=== PATIENT | male | born 1960 | race Caucasian/White ===

== ENCOUNTER 2021-07-01 03:51 | Outpatient (CLI) | payer OTHER, SELFPAY ==
[2021-07-01 07:36] LABS: Abs Immature Grans 0.02 10^3/uL (0.0-0.06); Absolute Basophil Count 0.04 10^3/uL (0.0-0.2); Absolute Eosinophil Count 0.19 10^3/uL (0.0-0.7); Absolute Neutrophil Count 3.31 10^3/uL (1.2-6.7); Basophils % 0.6; Eosinophils % 2.8; HCT 44.1 % (40.0-50.0); HGB 14.1 g/dL (13.5-17.5); Immature Grans % 0.3; Lymphocytes % 38.5; MCH 28.5 pg (27.0-33.0); MCV 89.1 fL (80-95); MPV 8.9 fL (8.0-11.0); Monocytes % 8.9; Neutrophils % 48.9; Nucleated RBC 0 %; Platelet Count 323 10^3/uL (130-400); RBC 4.95 10^6/uL (4.36-5.78); RDW 14.5 % (11.8-14.1); RDW-SD 47.1 fL; WBC 6.76 10^3/uL (4.4-10.8)
[2021-07-01 08:18] LABS: ALT 27 U/L (16-63); AST 19 U/L (15-37); Albumin 4.2 g/dL (3.4-5.0); Alkaline Phosphatase 64 U/L (46-116); Anion Gap 9.9 mmol/L (3-11); BUN 19 mg/dL (7-18); Bilirubin, Total 0.4 mg/dL (0.2-1.0); CO2 28.1 mmol/L (21.0-32.0); Calcium 8.7 mg/dL (8.5-10.1); Calculated LDL 132 mg/dL (<100); Chloride 103 mmol/L (98-107); Cholesterol 198 mg/dL (<200); Glucose 87 mg/dL (74-106); HDL Cholesterol 57 mg/dL (40-60); Potassium 4.5 mmol/L (3.5-5.1); Sodium 141 mmol/L (136-145); TSH (W/Ref FT4) 1.45 uIU/mL (0.36-3.74); Total Protein 7.1 g/dL (6.4-8.2); Triglyceride 46 mg/dL (<150)
[2021-07-01 09:59] LABS: Lipase 81 U/L (73-393)
[2021-07-01 18:24] LABS: PSA, Screening 1.4 ng/mL (0.0-4.5)
[2021-07-02 09:13] LABS: Hepatitis C Ab w Rflx HCV PCR Negative (Negative)
[2021-07-02 09:21] LABS: HIV-1/2 Ag & Ab Screen Negative (Negative)
[2021-07-05 12:55] LABS: IgA 207 mg/dL (85-499); Interpretation (See Note); Tissue Transglutaminase IgA <1.2 U/mL (<4.0)
== END 2021-07-01 03:52 | disposition home or self-care (01) ==
LOC: LBO 03:51
PROVIDERS: PCP Family Medicine; Visit Provider Family Medicine
DX: R10.9 Unspecified abdominal pain (principal); R19.7 Diarrhea, unspecified; Z11.59 Encounter for screening for other viral diseases; Z12.5 Encounter for screening for malignant neoplasm of prostate; Z13.6 Encounter for screening for cardiovascular disorders; I10 Essential (primary) hypertension
CPT/HCPCS: 36415; 80053; 80061; 82784; 83516; 83690; 84153; 86803; 87389; 84443; 85025

== ENCOUNTER 2021-12-30 10:05 | Day surgery (SDC) | payer OTHER, SELFPAY ==
--- NOTE | 2021-12-30 05:41 | W.PM.DSUDISC ---
Discharge Plan Disposition Patient Disposition: HOME Condition: Good Discharge Details Reason For Visit: screening colonoscopy Attending Provider: Francis Hills Primary Care Provider: Margaret Pickett Home Meds and New Rx's Prescriptions: Continued multivitamin Tablet 1 tab PO DAILY ibuprofen 200 mg capsule 600 mg PO Q6H PRN Discontinued bisacodyl [Dulcolax (bisacodyl)] 5 mg tablet,delayed release (DR/EC) 5 mg PO ONCE Qty: 4 0RF Rx Instructions: Take according to provider's instructions for colonoscopy prep. polyethylene glycol 3350 17 gram/dose powder 17 g PO ONCE Qty: 238 0RF Rx Instructions: To be taken as directed by prescriber's office for colonoscopy prep. Discharge Instructions Instructions: Colonoscopy (DC), Diverticulosis (DC) Additional Instructions: 1. If tolerated, consume a soft, low fiber diet for 1-2 days. [address] Do not drive, drink alcohol, operate machinery, make critical decisions, or do activities that require coordination or balance for 24 hours. 3. Because air was put into your colon during the procedure, expelling air from your rectum (passing gas or farting) is normal. 4. You may not have a bowel movement for 1-3 days because of the colonoscopy prep. This is normal. 5. Go directly to the emergency room if you notice any of the following: Develop chills (warm to touch), or if you have a thermometer and your temperature is above 101 Difficulty breathing or difficultly swallowing Persistent vomiting Severe abdominal pain, other than gas cramps Severe chest pain Black, tarry stools Any bleeding ? exceeding one tablespoon 6. Call your physician if the site where your intravenous was started becomes red, swollen, painful, and warm to touch. 7. Your physician has reviewed your pre-procedure medications. Please continue to take those medications as previously ordered. You will be given specific information/education regarding any changes to your medications before leaving. Activity:: Activity as Tolerated Diet:: As Tolerated Discharge Orders Discharge Orders: Discharge Order (Routine); Ordered 12/30/21 Ordered By: Francis Hills Discharge Data Discharge Comment: no polyps. follow up for next one 10 years DS: Diagnosis Discharge Diagnosis (1) Diverticulosis: Status: Acute Asessment and Plan: Follow up in 10 years for next screening colonoscopy
--- NOTE | 2021-12-30 05:44 | COLE_ITS ---
Colonoscopy Report Date of procedure: 12/30/21 Pre-op diagnosis general: sceening colonoscopy for routine health maintenance Post-op diagnosis procedure note: other (diverticulosis) Procedure: screening colonoscopy Surgeon: Francis iHlls Anesthesia Type: General:No Airway Estimated blood loss (mL): 0 Pathology: none sent Complications: None Disposition: same day Indications: screening colonoscopy Prep: Miralax/Dulcolax Procedure Start Time: 12:10 Procedure End Time: 12:38 Retraction Time: 19 Findings: mild diverticulosis Procedure Description: After the induction of monitored anesthetic care, and with the patient in left lateral decubitus position, I began by performing an external anorectal exam.? Perineum and skin were normal, as was the anal verge.? There were some fibrous skin tags.? Next, I performed a digital rectal exam.? I did not appreciate any abnormal findings.? Next, I advanced a colonoscope into the rectal vault.? I performed retroflexion.? I did see signs some internal hemorrhoids.? Using insufflation, I then advanced the colonoscope beyond the rectal folds and into the sigmoid colon before advancing towards the cecum.? The quality of the prep was adequate.? The scope was noted to be in the cecum by identification of the ileocecal valve and appendiceal orifice.? I then began withdrawing the colonoscope using repeated irrigation as necessary for full evaluation of the colonic mucosa. There was mild sigmoid diverticulosis. Once the scope was wi thdrawn to the level of the rectum, great care was taken to examine portions of the rectal folds.? Finally, the scope was withdrawn and the patient was brought to the same-day surgery recovery unit as the anesthetic wore off. ?The findings and instructions were shared with the patient prior to discharge.
--- NOTE | 2021-12-30 06:58 | W.ANESPRE ---
General Info Date of Service Date Performed: 12/30/21 Height: 5 ft 5 in Weight: 73.539 kg Body Mass Index (BMI): 26.9 Surgical Procedure: Operation Date: 12/30/21 11:35 Proposed Procedure Side Surgeon p Colonoscopy Francis Hills MD Meds Allergies and Home Medications Allergies Allergy/AdvReac Type Severity Reaction Status Date / Time No Known Allergies Allergy Unverified 12/29/21 10:30 Home Medication Medication Instructions Recorded ibuprofen 200 mg capsule 600 mg PO Q6H PRN 12/22/21 multivitamin 1 tab PO DAILY 12/22/21 Current Visit Medications: Current Medications Generic Name Dose Route Start Last Admin Trade Name Freq PRN Reason Stop Dose Admin Ringer's Solution 1,000 mls @ 80 mls/hr 12/30/21 06:00 IV 01/28/22 23:59 INFUSION SATINDER IV Miscellaneous Supplies 1 each 12/30/21 06:00 Iv Access IV 01/28/22 23:59 DIRECTED SATINDER Sodium Chloride 0 ml 12/30/21 06:00 Normal Saline Flush 10 Ml Syr IV 01/28/22 23:59 PRN PRN Sodium Chloride 0 ml 12/30/21 06:00 Normal Saline 10 Ml Vial IJ 01/28/22 23:59 DIRECTED PRN Sterile Water 0 ml 12/30/21 06:00 Water,Injection,Sterile 10 Ml Vial IJ 01/28/22 23:59 DIRECTED PRN PFSH Active Problems Active Problems: Problem Status Onset Code Screening for colon cancer Z12.11 Personal history of nicotine dependence Z87.891 Bigeminy I49.8 Irritable bowel syndrome K58.9 Tobacco Smoking/Tobacco Use Status: Former Tobacco Use Alcohol Alcohol Intake: current Alcohol intake frequency: holidays/special occasions only Alcohol type: beer Substance Use Substance use: Never Substance use type: does not use Vital Signs and Lab Results Lab Results Blood Type / Crossmatch: No Data to Display Complete Blood Count: No Data to Display Complete Metabolic Panel: No Data to Display Liver Function Panel: No Data to Display Coagulation Panel: No Data to Display Cardiac Panel: No Data to Display Arterial Blood Gas: No Data to Display Venous Blood Gas: No Data to Display Pancreas Panel: No Data to Display Thyroid Panel: No Data to Display Infectious Disease: No Data to Display Blood Cultures: No Data to Display Toxicology Panel: No Data to Display Anesthesia Assessment and Plan Anesthesia History Personal History: No History of Anesthesia Complications Family History: No Family History of Anesthesia Complications Exercise Tolerance Exercise Tolerance: Metabolic Equivalents>4 Pertinent Negatives Pertinent Negatives: No Symptoms of GERD Cardiac & Pulmonary Exam Cardiac Exam: Normal S1/S2 Heart Sounds Pulmonary Exam: Clear Bilateral Breath Sounds Implantable Cardiac Device Does patient have a Pacemaker or an ICD?: No Airway Exam Known Difficult Airway: No Mallampati Class: 2 Mouth Opening: Normal (> 3cm) Thyromental Distance: Greater than 3 cm Neck Range of Motion: Full ROM Neck Circumference: Normal Teeth Condition: Normal Dentition ASA Classification ASA Score: ASA 2 Emergency Case?: No NPO Status NPO Status: NPO Clears >2 hours, Solids >8 hours Anesthesia Plan Resuscitation Status: Full Code Anesthesia Technique: General Anesthesia Airway Planned: Natural Airway Monitors Used: Standard Monitors
[2021-12-30 10:20] VITALS: BP 121/77; PULSE 55; RESP 18; TEMP 37; O2SAT 99
[2021-12-30] MEDS: Lactated Ringers 1,000 ML 80 ML IV (10:44)
[2021-12-30 12:49] VITALS: BP 121/77; PULSE 53; RESP 16; TEMP 36.6; O2SAT 97
[2021-12-30 13:16] VITALS: BP 156/99; PULSE 51; RESP 18; TEMP 36.7; O2SAT 100
[2021-12-30 14:04] VITALS: BMI 26.9
--- NOTE | 2021-12-30 14:04 | W.ANESPOSTOP ---
Postoperative Evaluation Date, Time and Location Date Performed: 12/30/21 Time Performed: 14:04 Patient Location: Day Surgery Unit Vital Signs Most Recent Imported Vital Signs: Most Recent Vital Signs Temp Pulse Resp BP Pulse Ox 36.7 C 51 L 18 156/99 H 100 12/30/21 13:16 12/30/21 13:16 12/30/21 13:16 12/30/21 13:16 12/30/21 13:16 Pain Score Most Recent Pain Score: Most Recent Pain Score Pain Level 0 12/30/21 13:16 Assessment Mental Status: Awake (Alert & Oriented to Patient Baseline) Airway and Respiratory Function: Patent airway with normal (patient baseline) respiratory exam Cardiovascular Function: Hemodynamically Stable Hydration Status: Adequately Hydrated Nausea & Vomiting: No Nausea or Vomiting Pain: Pt. Denies Any Pain Peripheral Nerve Block: Patient did not receive a nerve block
== END 2021-12-30 13:43 | disposition home or self-care (01) ==
PROVIDERS: PCP Family Medicine; Visit Provider Surgery
PROC: 0DJD8ZZ Inspection of Lower Intestinal Tract, Via Natural or Artificial Opening Endoscopic (ICD-10-PCS; CPT 45378; principal; 2021-12-30 11:30)
DX: Z12.11 Encounter for screening for malignant neoplasm of colon (principal); K57.30 Diverticulosis of large intestine without perforation or abscess without bleeding; Z87.891 Personal history of nicotine dependence
CPT/HCPCS: 45378

== ENCOUNTER 2023-11-27 02:45 | Outpatient (CLI) | payer MEDICARE, SELFPAY ==
--- NOTE | 2023-11-27 06:00 | DI.CTLCSR_ITS ---
Exam(s) CT CHEST LUNG CANCER SCREEN EXAM: CT CHEST LUNG CANCER SCREEN CLINICAL HISTORY: Screening for lung cancer,former smoker, z87.891 TECHNIQUE: Imaging Protocol: Axial computed tomography images with coronal and sagittal reformatted images were created and reviewed COMPARISON: No exams were available for comparison FINDINGS: Tracheobronchial tree: Patent where visualized. No bronchiectasis. Pulmonary parenchyma: No consolidation or dominant measurable mass. There is a small area of scarring or infiltrate in the right upper lobe posteriorly. There is a calcified granuloma in the left lower lobe. Lung Nodules: There is a 4 mm nodule in the right upper lobe (series 2, image 96). Mediastinum and Pratima: No dominant adenopathy or fluid collection. The esophagus is unremarkable. Thyroid gland: Unremarkable. Lymph nodes: Unremarkable. Pleura: No effusion or pneumothorax. Heart: The heart is not dilated. Coronary artery calcifications are present. No pericardial effusion . Aorta: Thoracic aorta non-dilated. Upper abdomen: There is a question of a 1 cm exophytic nodule along the anterior aspect of the upper pole of the left kidney. It is isoechoic dense. It does not meet the criteria for a simple cyst. (Series 4, image 60). Soft Tissues: Unremarkable. Bones: Within normal limits for the patient's age. IMPRESSION: 1. 4 mm right upper lobe pulmonary nodule. 2. Exophytic 1 cm nodule in the anterior aspect of the left kidney. CT scan or MRI of the abdomen is recommended for further evaluation. Lung RADS Cat 3S - Probably Benign: Probably benign finding(s) - short term follow-up suggested; incl ude nodules with a low likelihood of becoming a clinically active cancer. Other: Clinically Significa nt or Potentially Clinically Significant Findings (non lung cancer) Lung-RADS 1.0 CATEGORIES: Category 0 - Prior chest CT exam(s) being located for comparison. Category 1 - Annual screening in 12 months. No nodules or definitely benign nodules. Category 2 - Annual screening in 12 months. Benign appearance. Nodules with low likelihood of becomin g active cancer. Category 3 - 6-month follow-up. Probably benign. Short-term follow-up suggested. Nodules with low lik elihood of becoming active cancer. Category 4A - 3-month follow-up and CT/PET if >8 mm in size. Suspicious finding. Findings which requi re additional testing. Category 4B - Findings which require additional testing and tissue sampling. Suspicious finding. Category 4X - Category 3 or 4 nodules with additional features or imaging findings that increases the suspicion of malignancy. Modifier S- Potentially clinically significant finding. (Non lung cancer) Unexpected findings RADIATION DOSE DELIVERED: Total DLP Total DLP DATA REPOSITORY: All CT scans at this facility are submitted to the National Radiology Data Registry (NRDR) Dose Index Registry (DIR) with the [employer] (ACR). RADIATION OPTIMIZATION: All CT scans at this facility use at least one of these dose optimization te chniques: automated exposure control; mA and/or kV adjustment per patient size (includes targeted exa ms where dose is matched to clinical indication); or iterative reconstruction.
--- NOTE | 2023-11-27 06:00 | DI.US_ITS ---
Exam(s) US AAA SCREENING EXAM: US AAA SCREENING CLINICAL HISTORY: screening for aaa,personal h/o nicotine dependence, z87.891 COMPARISON: No exams were available for comparison FINDINGS: Abdominal Aorta: Proximal: 2.5 x 2.7 cm Mid: 2.1 x 2.2 cm Distal: 1.8 x 2.2 cm Iliac's: Right: 1.5 x 1.6 cm Left: 1.3 x 1.6 cm IMPRESSION: No evidence of abdominal aortic aneurysm. DATA REPOSITORY:
== END 2023-11-27 03:05 ==
LOC: DI 02:45
PROVIDERS: PCP Family Medicine; Visit Provider Family Medicine
DX: Z87.891 Personal history of nicotine dependence (principal); R91.1 Solitary pulmonary nodule; R93.422 Abnormal radiologic findings on diagnostic imaging of left kidney
CPT/HCPCS: 71271; 76706

== ENCOUNTER 2023-12-01 00:18 | Outpatient (CLI) | payer MEDICARE, SELFPAY ==
--- OUTSIDE RECORDS SUMMARY | 2023-12-01 00:23 | XMS_ITS | Encounter Summary ---
Author Organization [facility] Address [address] [place] [address] Care Team Providers Care Data Capture Clerk Name Role Phone Unavailable Primary Care Provider Unavailabl e Encounter Details Date Type Department Care Team (Late st Contact Info) Description 07/01/2021 Lab Requisition [facility] Pathology & Laboratory Medicine - [facility] [address] [place] [address] Outr Resulting Lab, Provider Social History Tobacco Use Types Packs/Day Years Used Date Smoking Tobacco: Never Assessed Sex and Gender Information Value Date Recorded Sex Assigned at Not on file Gender Identity Not on file Sexual Orientation Not on file documented as of this encounter Plan of Treatment Not on file documented as of this encounter Procedures Procedure Name Priority Date/Time Associated Diagnosis Comments CELIAC DISEASE PANEL Routine 07/01/2021 7:20 EDT HEPATITIS C AB W REFLEX TO HCV RNA BY PCR Routine 07/01/2021 7:20 EDT PSA TOTAL, DIAGNOSTIC Routine 07/01/2021 7:20 EDT documented in this encounter Results * PSA TOTAL, DIAGNOSTIC (07/01/2021 7:20 EDT) PSA 1.4 0.0 - 4.5 ng/mL 07/01/2021 18:19 EDT [facility] Blood VENOUS BLOOD / Unknown 07/01/2021 7:20 EDT 07/01/2021 17:17 EDT Narrative [facility] - 07/01/2021 18:19 EDT NOTE: Serum PSA concentration should not be interpreted as absolute evidence for the presence or absence of malignant disease. Assayed on Siemens ADVIA Zipdialaur XPT using chemiluminescent technology.??Values obtained by using different assay methods cannot be used interchangeably. Provider Outr Resulting Lab CHEMISTRY & BLOOD GAS ORDERABLES Performing Organization Address City/[facility]/ZIP Co de Phone Number [facility] [address] [place] [address] * HEPATITIS C AB W REFLEX TO HCV RNA BY PCR (07/01/2021 7:20 EDT) Hep C Antibody Negative Negative 07/02/2021 9:08 EDT [facility] Blood VENOUS BLOOD / Unknown 07/01/2021 7:20 EDT 07/01/2021 17:17 EDT Provider Outr Resulting Lab CHEMISTRY & BLOOD GAS ORDERABLES Performing Organization Address [facility] Co de Phone Number [facility] [address] [place] [address] * CELIAC DISEASE PANEL (07/01/2021 7:20 EDT) Tissue Transglutaminase Antibody IGA <1.2 <4.0 U/mL 07/05/2021 12:50 EDT [facility] Comment: A negative result may be due to IgA deficiency and does not rule out celiac disease. ? Negative: ??<4.0 U/mL ? Weak Positive: ??4.0 - 10.0 U/mL ? Positive: ??>10.0 U/mL Results were obtained with the PiPsportsA Lite R h-tTG IgA BERNARD assay on the HaztucestaX. IgA 207 85 - 499 mg/dL 07/05/2021 12:50 EDT [facility] Celiac Disease Interpretation Negative Serology. Celiac disease unlikely. Approximately 10% of patients with celiac disease are seronegative. Patients who are already adhering to a gluten-free diet may also be seronegative. If celiac disease is highly clinically suspected, referral to gastroenterology for additional evaluation is recommended. 07/05/2021 12:50 EDT [facility] Blood VENOUS BLOOD / Unknown 07/01/2021 7:20 EDT 07/01/2021 17:17 EDT Provider Outr Resulting Lab IMMUNOLOGY A ND SEROLOGY ORDERABLES [facility] [address] [place] [address] documented in this encounter Visit Diagnoses Not on filedocumented in this encounter
--- OUTSIDE RECORDS SUMMARY | 2023-12-01 00:23 | XMS_ITS | Referral Summary ---
Author Organization [facility] Address [address] [place] [id number] Care Team Providers Care Senior Network Architect Name Role Phone Unavailable Primary Care Provider Unavailabl e Social History Tobacco Use Types Packs/Day Years Used Date Smoking Tobacco: Never Assessed Sex and Gender Information Value Date Recorded Sex Assigned at Not on file Gender Identity Not on file Sexual Orientation Not on file Plan of Treatment Not on file Procedures Procedure Name Priority Date/Time Associated Diagnosis Comments HEPATITIS C AB W REFLEX TO HCV RNA BY PCR Routine 07/01/2021 7:20 EDT from Last 3 Months or Most Recently Relevant to Health Maintenance Results * HEPATITIS C AB W REFLEX TO HCV RNA BY PCR (07/01/2021 7:20 EDT) Hep C Antibody Negative Negative 07/02/2021 9:08 EDT [facility] Blood VENOUS BLOOD / Unknown 07/01/2021 7:20 EDT 07/01/2021 17:17 EDT Provider Outr Resulting Lab CHEMISTRY & BLOOD GAS ORDERABLES [facility] [address] [place] [address] from Last 3 Months or Most Recently Relevant to Health Maintenance
--- OUTSIDE RECORDS SUMMARY | 2023-12-01 00:23 | XMS_ITS | Encounter Summary ---
[facility] [place] [address] Care Team Providers Care Tree Deadener Name Role Phone Margaret Pickett MD Primary Care Provider [phone] Reason for Visit * Reason Onset Date Comments Reminder Appointment 07/21/2021 Encounter Details Date Type Department Care Team (Late st Contact Info) Description 07/21/2021 [place] [phone] Fanny Putnam CCMA Reminder Appointment Social History Tobacco Use Types Packs/Day Years Used Date Smoking Tobacco: Never Assessed Sex and Gender Information Value Date Recorded Sex Assigned at Not on file Gender Identity Not on file Sexual Orientation Not on file documented as of this encounter Miscellaneous Notes * Telephone Encounter - Fanny Putnam CCMA - 07/21/2021 9:18 AM EDT Called patient to review medications and allergies for their upcoming gastroenterology Type of Appointment: Telehealth appointment. Reach Patient during MA Check: Yes Notes for the provider: Notes for the nurse: documented in this encounter Plan of Treatment Not on file documented as of this encounter Visit Diagnoses Not on filedocumented in this encounter Care Teams Tree Deadener Relationship Specialty Start Date End Date Margaret Pickett MD [address] [place] [id number] PCP - General Family Medicine 06/30/21 documented as of this encounter
--- OUTSIDE RECORDS SUMMARY | 2023-12-01 00:23 | XMS_ITS | Encounter Summary ---
[place] [address] Care Team Providers Care Precast Concrete Products Installer Name Role Phone Margaret Pickett MD Primary Care Provider [phone] Reason for Referral * Consultation (Routine) - Closed Specialty Diagnoses / Procedures Referred By Contac t Referred To Contact Gastroenterology Diagnoses Diarrhea, unspecified type motility- Diarrhea Denver Hobbs MD [address] [place] [address] [facility] [address] [place] [phone] Referral ID Status Reason Start Date Expiration Date V isits Requested Visits Authorized [id number] Closed Consult, Test & Treat 06/30/2021 06/30/2022 6 6 Encounter Details Date Type Department Care Team (Latest Contact Info) Description 06/30/2021 Transcribe Orders eDH Incoming Referrals [phone] Denver Hobbs MD [address] [place], [place] [address] Diarrhea, unspecified type Social History Tobacco Use Types Packs/Day Years Used Date Smoking Tobacco: Never Assessed Sex and Gender Information Value Date Recorded Sex Assigned at Not on file Gender Identity Not on file Sexual Orientation Not on file documented as of this encounter Plan of Treatment Scheduled Referrals Name Type Priority Associated Diagnoses Order Schedule Referral to Gastroenterology Outpatient Referral Routine Diarrhea, Unspecified Type Ordered: 06/30/2021 documented as of this encounter Visit Diagnoses Diagnosis Diarrhea, unspecified type documented in this encounter Care Teams Precast Concrete Products Installer Relationship Specialty Start Date End Date Margaret Pickett MD [address] [place] [id number] PCP - General Family Medicine 06/30/21 documented as of this encounter
--- OUTSIDE RECORDS SUMMARY | 2023-12-01 00:23 | XMS_ITS | Encounter Summary ---
Author Organization [facility] Address [address] [place] [id number] Care Team Providers Care Bread And Pastry Baker Name Role Phone Unavailable Primary Care Provider Unavailabl e Encounter Details Date Type Department Care Team (Late st Contact Info) Description 07/01/2021 Lab Requisition [facility] Pathology & Laboratory Medicine - [facility] [address] [place] [address] Outr Resulting Lab, Provider Social History Tobacco [...] Procedure Name Priority Date/Time Associated Diagnosis Comments HIV 1/2 ANTIGEN AND ANTIBODY, 4TH GENERATION Routine 07/01/2021 7:20 EDT documented in this encounter Results * HIV 1/2 ANTIGEN AND ANTIBODY, 4TH GENERATION (07/01/2021 7:20 EDT) HIV 1 and 2 Antibody/p24 Antigen, 4th Generation Negative Negative 07/02/2021 9:17 EDT [facility] Comment:If acute HIV-1 infec tion is suspected in a high risk patient, submit plasma specimen for HIV-1 RNA quantitation test. Blood VENOUS BLOOD / Unknown 07/01/2021 7:20 EDT 07/01/2021 17:17 EDT Narrative [facility] - 07/02/2021 9:17 EDT Fourth Generation assay performed on the Siemens Centaur XPT. Provider Outr Resulting Lab IMMUNOLOGY A ND SEROLOGY ORDERABLES [facility] [address] [place] [address] documented in this encounter Visit Diagnoses Not on filedocumented in this encounter
--- OUTSIDE RECORDS SUMMARY | 2023-12-01 00:23 | XMS_ITS | Clinical Summary ---
Author Organization [facility] Address [facility] [place] [address] Care Team Providers Care 3Rd Grade Teacher Name Role Phone Margaret Pickett MD Primary Care Provider Allergies No known active allergies Medications Medication Sig Dispensed Refills Start Date End Date Status cholecalciferol, Vitamin D3, (cholecalciferol, Vitamin D3,) 50 mcg (2,000 unit) Capsule Take by mouth. Active Active Problems No known active problems Immunizations Name Administration Dates Next Due Covid-19 (Pfizer), Khanna Cap Monovalent 30mcg (12yr+) 03/08/2021 Moderna Covid-19 Monovalent 12Yr+ (Returned Materials Inspector 100mcg) 07/20/2021,08/11/2020,07/14/2020 Social History Tobacco Use Types Packs/Day Years Used Date Smoking Tobacco: Never Assessed Sex and Gender Information Value Date Recorded Sex Assigned at Not on file Gender Identity Not on file Sexual Orientation Not on file Plan of Treatment Health Maintenance Due Date Last Done Comments CT Colonography 1958 Colonoscopy 1958 Colorectal Cancer Screening 1958 FIT DNA 1958 FIT 1958 Sigmoidoscopy (10 year) with FIT yearly 1958 Sigmoidoscopy 1958 HIV screen 1976 Hepatitis C Screening 1976 Lipid Screening 1976 Tdap adult 1977 Tetanus vaccine 1977 Zoster vaccine (1 of 2) 2008 Advance Directive 2013 Covid-19 Vaccine (5 - 2022-2 4 season) 2022 07/20/2021, 03/08/2021, 08/11/2020, Additional history exists Pneumoccocal Vaccine: 65+ (1 of 1 - PCV) 2023 Influenza (Flu) vaccine (1 o f 1 - Influenza standard series) 12/17/2023 Care Teams 3Rd Grade Teacher Relationship Specialty Start Date End Date Margaret Pickett MD [address] [place] [address] PCP - General Family Medicine 06/30/21
--- OUTSIDE RECORDS SUMMARY | 2023-12-01 00:23 | XMS_ITS | Encounter Summary ---
Author Organization On License Of [facility] [place] [address] Care Team Providers Care Door Operator Name Role Phone Margaret Pickett MD Primary Care Provider [phone] Encounter Details Date Type Department Care Team (Late st Contact Info) Description 11/03/2005 Orders Only Dermatology at [place] [address] [facility] [place] [address] Leonard Lawton MD [address] [facility] [place] [address] Social History Tobacco Use Types Packs/Day Years Used Date Smoking Tobacco: Never Assessed Sex and Gender Information Value Date Recorded Sex Assigned at Not on file Gender Identity Not on file Sexual Orientation Not on file documented as of this encounter Plan of Treatment Not on file documented as of this encounter Procedures Procedure Name Priority Date/Time Associated Diagnosis Comments SURGICAL PATHOLOGY REPORT Routine 11/03/2005 6:01 PM EDT documented in this encounter Results * Surgical Pathology Report (11/03/2005 6:01 PM EDT) Surgical Pathology Report [id number] ? Location: The signing pathologist has (i) examined the relevant preparation(s) for the specimen(s) and (ii) rendered or confirmed the diagnosis(es). . ?Pathology Surgical Pathology Final Report Clinical Information Specimen Submitted: A - Lt hand: ??punch 4 mm. Clinical History: 3 month H/O pruritic dermatitis. Clinical Diagnosis: Allergic contact dermatitis. Gross Description Labeled/Fixative: ? L, hand, formalin. Qty/Size/Weight: ?Single punch, 0.4 cm, there is a smooth, driver-brown ?skin surface. Sections/Processing : ??Bisected. ??(T1) ??crh/PPS Microscopic Description Slides reviewed, microscopic description not recorded. Diagnosis Skin, left hand, 4.0-mm punch biopsy: ?? Focal spongiosis with acanthosis, and a superficial perivascular mixed inflammatory cell infiltrate including lymphocytes and scattered eosinophils (see Comment). CR-0 11/06/05 AJE 11/07/05 Verified by: ? Liliane Peters MD ?Dermatopathologis t ?(Electronic Signature) The attending pathologist whose signature appears on this report has reviewed all diagnostic slides and has edited the gross and/or microscopic portion of the report in rendering the final pathologic diagnosis. Comment Multiple levels examined. ??There is very focal superfiical epidermal necrosis at the edge of a follicular ostium; this focus is absent in deeper levels. ??The significance of this very focal necrosis is unclear. It could be seondary to excoriation. The findings are consistent with the clincial suspicion of hypersensitivity reaction. BRENNAN ESLF 11/03/2005 6:01 PM EDT Leonard Lawton MD PATHOLOGY/CYTOLOGY O CHEVYERACHASE BRENNAN SELF documented in this encounter Visit Diagnoses Not on filedocumented in this encounter Care Teams Door Operator Relationship Specialty Start Date End Date Margaret Pickett MD [address] [place] [address] [place] [address] PCP - General Family Medicine 06/30/21 documented as of this encounter
--- OUTSIDE RECORDS SUMMARY | 2023-12-01 00:23 | XMS_ITS | Clinical Summary ---
Author Organization [facility] Address [address] [place] [id number] Care Team Providers Care Business Intelligence Consultant Name Role Phone Unavailable Primary Care Provider Unavailabl e Social History Tobacco Use Types Packs/Day Years Used Date Smoking Tobacco: Never Assessed Sex and Gender Information Value Date Recorded Sex Assigned at Not on file Gender Identity Not on file Sexual Orientation Not on file Plan of Treatment Health Maintenance Due Date Last Done Comments RSV Immunization ( o r 60+ Years) (1 - 1-dose 60+ series) 2018 COVID-19 Vaccine ( season) 2022 Fall Risk Screening 2023 Hepatitis C Screen Completed 07/01/2021 Procedures Procedure Name Priority Date/Time Associated Diagnosis Comments HEPATITIS C AB W REFLEX TO HCV RNA BY PCR Routine 07/01/2021 7:20 EDT from Last 3 Months or Most Recently Relevant to Health Maintenance Results * HEPATITIS C AB W REFLEX TO HCV RNA BY PCR (07/01/2021 7:20 EDT) Hep C Antibody Negative Negative 07/02/2021 9:08 EDT [facility] Blood VENOUS BLOOD / Unknown 07/01/2021 7:20 EDT 07/01/2021 17:17 EDT Provider Outr Resulting Lab CHEMISTRY & BLOOD GAS ORDERABLES [facility] [address] [place] [address] from Last 3 Months or Most Recently Relevant to Health Maintenance
--- OUTSIDE RECORDS SUMMARY | 2023-12-01 00:23 | XMS_ITS | Encounter Summary ---
Author Organization [place] [address] Care Team Providers Care Swedish Masseuse Name Role Phone Margaret Pickett MD Primary Care Provider [phone] Reason for Visit * Consultation (Routine) - Closed Specialty Diagnoses / Procedures Referred By Contmaryan t Referred To Contact Gastroenterology Diagnoses Diarrhea, unspecified type motility- Diarrhea Denver Hobbs MD [address] [place] [address] [facility] [address] [address] Referral ID Status Reason Start Date Expiration Date V isits Requested Visits Authorized [id number] Closed Consult, Test & Treat 06/30/2021 06/30/2022 6 6 Encounter Details Date Type Department Care Team (Latest Contact Info) Description 07/21/2021 11:00 AM EDT TH Visit (TeleHealth) [place] [address] Dominga Lacey, AWS SOLUTION ARCHITECT [address] [facility] [place], [place] [id number] Diarrhea, unspecified type; Irritable bowel syndrome with diarrhea; Bloating Social History Tobacco Use Types Packs/Day Years Used Date Smoking Tobacco: Never Assessed Sex and Gender Information Value Date Recorded Sex Assigned at Not on file Gender Identity Not on file Sexual Orientation Not on file documented as of this encounter Progress Notes * Dominga Lacey APRN - 07/21/2021 11:00 AM EDT [facility] Chief Complaint: Sherif Thrasher is a 61 y.o. patient referred for consultation by Dr. Anjel pathak History of Present Illness: 61 y.o. male without a significant medical history Smoked for 40 years. Once he stopped smoking, he started having gastrointestinal issues. This was approximately 18-24 months ago. Endorses one formed complete bowel movement in the morning. Started having bloating and urgent bowel movements. Loose bowel movements up to 8-10 times per day. Denies straining and difficulty emptying. FODMAP diet since 06/22/21. Dramatic improvement in terms of symptoms. Bloating and diarrhea have improved since starting FODMAP. Has started losing weight with the FODMAP. Is planning on following thereintroduction once he has reached a goal weight loss. Denies dysphagia, odynophagia, and globus. Denies reflux and regurgitation. Good appetite. Denies early satiety. Denies nausea and vomiting. Denies chronic NSAID use. PVCs occasionally Review of systems: 14-point review of systems reviewed and negative except as above. Medications: Outpatient Medications Prior to Visit Medication Sig Dispense Refill ??? cholecalciferol, Vitamin D3, (cholecalciferol, Vitamin D3,) 50 mcg (2,000 unit) Capsule Take bygauth. ??? predniSONE (DELTASONE) 10 mg tablet 10MG = 1 Tablet(s), PO, Once daily No facility-administered medications prior to visit. Allergies: has No Known Allergies. Past Medical History: has no past medical history on file. Past Surgical History: has no past surgical history on file. Family History: Father- stomach issues denies family history of colon cancer, IBD, or celiac disease in mother father or other family members Social History: Quit smoking. Denies cannabis use. Denies eTOH use. Physical exam: No Physical Examination performed during this telemedicine visit Questionnaire: No flowsheet data found. Laboratory studies, imaging, and procedures (in summary of my review of prior records): Assessment/Plan: Mr. Thrasher is a 61 y.o. patient with an 18-24 month history of bloating, abdominal pain, and urgent non-bloody loose stools up to 8-10 times per day with fecal seepage. He correlates the onset ofsymptoms with quitting smoking, although this may be coincidental. He was evaluated locally on 06/22/2021 and subsequently started the FODMAP diet. Since that time, he endorses bloating and diarrhea have improved significantly. He has started losing weight as a consequence, although admits he is approximately 40 pounds over his baseline weight. We discussed how the FODMAP diet is a short-term solution and how reintroduction is to the elimination.. We discussed how there is concern for calcium deficiency with the FODMAP diet, although he endorses using [place] and oat milk which are fortified with calcium. He is due for colorectal cancer screening, as he has never had a colonoscopy. We discussed how I am happy to arrange for colonoscopy, although he did not want to make a decision about this today. We discussed how colonoscopy is the best modality for prevention of colorectal cancer. We discussed how given his history and constellation of symptoms, I suspect bacterial dysbiosis. His symptoms are most consistent with small intestinal bacterial overgrowth or IBS with the diarrhea predominance. I cannot rule out an infectious etiology. Recommendations: -Continue FODMAP diet for now. Ensure adequate calcium in diet -Reintroduce foods using FODMAP protocol after approximately 6 to 8 weeks. -He will follow up with primary care provider locally -He will reach out to me for colonoscopy -Consider rivet tapping machine operator consultation -No further follow-up appointments have been scheduled at this time. We are happy to see him back in clinic as needed Treatment plan for PCP/local team -Please arrange for stool culture, Giardia/Cryptosporidium -Consider rifaximin 550 mg 3 times daily x14 days for IBS with the diarrhea predominance Dominga Lacey APRN [facility] [place] [address] [address] documented in this encounter Plan of Treatment Not on file documented as of this encounter Visit Diagnoses Diagnosis Diarrhea, unspecified type Irritable bowel syndrome with diarrhea Irritable bowel syndrome Bloating Flatulence, eructation, and gas pain documented in this encounter Care Teams Swedish Masseuse Relationship Specialty Start Date End Date Margaret Pickett MD [address] [place] [id number] PCP - General Family Medicine 06/30/21 documented as of this encounter
[2023-12-01 07:39] LABS: Estimated GFR 83.52 (mL/min/1.73m2)
[2023-12-01] MEDS: Omnipaque 350 MG/ML 500 ML BTL-Imaging package 100 ML IJ (08:24)
--- NOTE | 2023-12-01 08:34 | DI.CT_ITS ---
Exam(s) CT ABDOMEN PELVIS WO/W EXAM: CT ABDOMEN PELVIS WO/W CLINICAL HISTORY: Left kidney mass on ct,n29.89 TECHNIQUE: Imaging Protocol: Axial computed tomography images with coronal and sagittal reformatted images were created and reviewed. CONTRAST MATERIAL: Intravenous: Omnipaque 350 Contrast volume:100 mL Oral: No COMPARISON: CT CT CHEST LUNG CANCER SCREEN from 11/27/2023 FINDINGS: ABDOMEN: Lung Bases: Normal where visualized. Liver: Normal density. There is a 1 cm hypodense nodule in the right lobe of the liver with nodular p eripheral enhancement most consistent with a benign hepatic hemangioma. No suspicious hepatic masses are seen. Portal, Superior Mesenteric, and Splenic Veins: Unremarkable. Gallbladder and Biliary Tract: Cholelithiasis. There is no biliary ductal dilatation. Pancreas: Normal density, no abnormal calcifications or inflammatory process. Spleen: Normal. Adrenals: No masses seen. Kidneys: Normal size, contour and axis. No radiodense stones or obstructive uropathy. There is again seen a 1.2 cm exophytic nodule along the anterior aspect of the upper pole of the left kidney. It sh ows no enhancement and is homogeneously hypodense consistent with a simple cyst. This corresponds to the finding seen on the CT scan of the chest. No suspicious hepatic masses are present. No follow- up is recommended. Abdominal Aorta: Abdominal portion non-dilated. Atherosclerotic calcification is present. Bowel: No obstruction or bowel wall thickening. Appendix is unremarkable. Peritoneal Cavity: No ascites, collection or mesenteric inflammatory response. No free air. Lymph Nodes: Within normal limits. Bones: Within normal limits for the patient's age. Soft Tissues: There is a small fat containing umbilical hernia. PELVIS: Bladder: Symmetric distention, no gross wall thickening. Reproductive Organs: Unremarkable as visualized. Lymph Nodes: Within normal limits. Bones: Within normal limits for the patient's age. IMPRESSION: 1. The nodule in the upper aspect of the left kidney corresponds to a simple cyst. No follow-up is r ecommended. 2. No suspicious renal masses. 3. No acute abdominal or pelvic process. RADIATION DOSE DELIVERED: Total DLP Total DLP DATA REPOSITORY: All CT scans at this facility are submitted to the National Radiology Data Registry (NRDR) Dose Index Registry (DIR) with the [employer] (A[employer]). RADIATION OPTIMIZATION: All CT scans at this facility use at least one of these dose optimization te chniques: automated exposure control; mA and/or kV adjustment per patient size (includes targeted exa ms where dose is matched to clinical indication); or iterative reconstruction.
[2023-12-01 21:08] LABS: PSA, Screening 0.9 ng/mL (<=4.5)
== END 2023-12-01 00:38 ==
LOC: DI 00:21
PROVIDERS: PCP Family Medicine; Visit Provider Family Medicine
DX: N28.89 Other specified disorders of kidney and ureter (principal); Z12.5 Encounter for screening for malignant neoplasm of prostate
CPT/HCPCS: 84153; 74178; 82565